=== PATIENT | female | born 2000 | race Caucasian/White ===

== ENCOUNTER 2021-10-14 12:03 | Emergency (ER) | payer BC ==
[~2021-10-14] VITALS: Ht 160 cm; Wt 79.5 kg
[2021-10-14 12:19] VITALS: TEMP 97.6
[2021-10-14] MEDS ORDERED: LEXAPRO 10MG10 MG PO (12:21)
[2021-10-14] MEDS ORDERED: NAPROSYN500 MG PO (14:25)
[2021-10-14] MEDS ORDERED: FLEXERIL 1010 MG/TAB PO (14:25)
[2021-10-14 14:40] VITALS: BP 119/80; PULSE 71
== END 2021-10-14 14:40 | disposition home or self-care (01) ==
LOC: COL.ER 12:03
DX: M62.830 Muscle spasm of back (principal); Z87.39 Personal history of other diseases of the musculoskeletal system and connective tissue
CPT/HCPCS: J1885; J3360

== ENCOUNTER 2022-01-03 18:05 | Emergency (ER) | payer BC ==
[~2022-01-03] VITALS: Ht 157.5 cm; Wt 77.3 kg
[~2022-01-03 18:05] MED LIST: FLEXERIL 1010 MG/TAB PO; LEXAPRO 10MG10 MG PO; NAPROSYN500 MG PO
[2022-01-03 20:53] VITALS: BP 133/81; PULSE 92; TEMP 99.5
== END 2022-01-03 20:45 | disposition home or self-care (01) ==
LOC: COL.ER 18:05
DX: J10.1 Influenza due to other identified influenza virus with other respiratory manifestations (principal); Z20.822 Contact with and (suspected) exposure to COVID-19
CPT/HCPCS: J7030